=== PATIENT | female | born 1965 | race Caucasian/White ===

== ENCOUNTER 2019-02-04 14:27 | Emergency (ER) | payer OTHER ==
--- NOTE | 2019-02-04 15:36 | EDPHY ---
H & P Time Seen by Provider: 02/04/19 15:14 HPI/ROS: CHIEF COMPLAINT: Knee pain HISTORY OF PRESENT ILLNESS: Patient is a 54-year-old female who presents emergency department with left lower back pain. Pain started approximately 10 days ago. She had no trauma or falls. She does not recall an injury. She initially thought she pulled a muscle. Her pain is worse with movement and bending over. Her pain is persisted and has not improved with ibuprofen. She is not concerned that she has a kidney stone. She has no dysuria frequency. No hematuria. No fevers or chills. She has no abdominal pain. No nausea or vomiting. Patient denies leg weakness or numbness. No incontinence of urine or stool. REVIEW OF SYSTEMS: 10 systems were reveiwed and are negative with the exception of the elements mentioned in the history of present illness. Past Medical/Surgical History: Includes ulcerative colitis Smoking Status: Never smoked Physical Exam: Vitals noted. Afebrile GENERAL: Well-appearing, in no acute distress, alert. HEENT: Eyes normal to inspection, normal pharynx, no signs of dehydration. NECK: Normal, supple. RESPIRATORY: Clear to auscultation bilaterally, no rales, rhonchi or wheezing. CVS: Regular rate and rhythm, no rubs, murmurs, or gallops. ABDOMEN: Soft, nontender, nondistended, no organomegaly. BACK: Normal to inspection, no CVA tenderness. No spinal tenderness. The patient does have focal left lower back tenderness to palpation. This replicates her pain. Negative leg raise bilaterally. SKIN: Normal color, no rash, warm, dry. No pallor. EXTREMITIES: No pedal edema, no calf tenderness, no Homans sign or cords, no joint swelling. NEURO/PSYCH: Alert and oriented, normal mood and affect, normal motor sensory exam. Constitutional: Initial Vital Signs Temperature (C) 36.8 C 02/04/19 14:31 Heart Rate 78 02/04/19 14:31 Respiratory Rate 18 02/04/19 14:31 Blood Pressure 134/67 H 02/04/19 14:31 O2 Sat (%) 99 02/04/19 14:31 O2 Delivery Mode Room Air Allergies/Adverse Reactions: moxifloxacin [From Avelox] Allergy (Verified 02/04/19 14:31) Home Medications: Medication Instructions Recorded Cyclobenzaprine [Flexeril] 10 mg PO TID #15 tab 02/04/19 Hydrocodone/APAP 5/325 [[place] 1 - 2 tab PO Q4 #13 tab 02/04/19 5/325 (RX)] Lomotil Tab (*) 02/04/19 Zoloft 100mg (*) 02/04/19 predniSONE 20 mg PO DAILY 4 Days tab 02/04/19 Medical Decision Making ED Course/Re-evaluation: In the emergency department I discussed possible etiologies with the patient. I answered all her questions. Urine studies were sent. urine negative I discussed the findings with the patient. I feel urinary tract infection, pyelonephritis or kidney stone less likely. This seems to be more musculoskeletal strain. The patient was given a prescription for prednisone, Flexeril and Vicodin. She is given warnings prior to leaving. She will return with worsening symptoms. Differential Diagnosis: My differential includes but is not limited to disc disease, musculoskeletal strain, urinary tract infection, pyelonephritis, diverticulitis, ulcerative colitis, , ectopic - Data Points Laboratory Results: 02/04/19 13:00 Urine Color COLORLESS Urine Appearance HAZY Urine pH 5.0 (5.0-7.5) Ur Specific [place] 1.009 (1.002-1.030) Urine Protein NEGATIVE (NEGATIVE) Urine Ketones NEGATIVE (NEGATIVE) Urine Blood NEGATIVE (NEGATIVE) Urine Nitrate NEGATIVE (NEGATIVE) Urine Bilirubin NEGATIVE (NEGATIVE) Urine Urobilinogen NEGATIVE EU EU (0.2-1.0) Ur Leukocyte Esterase NEGATIVE (NEGATIVE) Urine RBC 1-3 /hpf /hpf (0-3) Urine WBC 1-3 /hpf /hpf (0-3) Ur Epithelial Cells TRACE /lpf /lpf (NONE-1+) Urine Mucus TRACE /lpf /lpf (NONE-1+) Urine Glucose NEGATIVE (NEGATIVE) Departure - Departure Disposition: Home, Routine, Self-Care Clinical Impression: Low back pain Condition: Good Instructions: Acute Low Back Pain (ED) Additional Instructions: Return with increasing pain, fever, incontinence of urine or stool, weakness, numbness or any other concerns. Referrals: Cammy Tucker MD [Medical Doctor] - As per Instructions Wesly Burger MD [Medical Doctor] - 5-7 days, call for appt. Prescriptions: Cyclobenzaprine [Flexeril] 10 mg PO TID #15 tab Hydrocodone/APAP 5/325 [[place] 5/325 (RX)] 1 - 2 tab PO Q4 #13 tab predniSONE 20 mg PO DAILY 4 Days tab
[2019-02-04] MEDS ORDERED: predniSONE 20 MG TAB PO ONE (16:20)
[2019-02-04 16:40] VITALS: BP 121/77
== END 2019-02-04 16:39 | disposition home or self-care (01) ==
DX: M54.5 Low back pain (principal)
CPT/HCPCS: J7512